=== PATIENT | male | born 1930 | race Caucasian/White ===

== ENCOUNTER 2021-12-30 06:16 | Day surgery (SDC) | payer MEDICARE, BC ==
[~2021-12-30] VITALS: Ht 167.6 cm; Wt 68.6 kg
[~2021-12-30 06:16] MED LIST: ENALAPRIL MALEA20 MG PO; HYDROCHLOROTHIA25 MG PO; LIPITOR10 MG; TENORMIN50 MG PO; TRAMADOL HCL50 MG PO
[2021-12-30] MEDS ORDERED: LO-DOSE ASPIRIN81 MG PO (06:43)
--- NOTE | 2021-12-30 08:59 | NUR ---
12/30/21 0859 Sheets,Arlene 0846 PT ARRIVED TO PACU ASLEEP ON 6L VIA MASK, VSS. 0851 PT WAKES TO TACTILE STIMULI AND IS REORIENTED TO PACU, O2 MASK REMOVED. PT EASILY FALLS BACK TO SLEEP. 0857 PERIOD OF APNEA NOTED, PT WAKES TO VERBAL STIMULI AND ICE PLACED ON RIGHT WRIST. PT REORIENTED TO PACU. PT REPORTS HAND IS NUMB AND NO PAIN.
--- NOTE | 2021-12-30 10:20 | NUR ---
PT ALERT, ORIENTED AND SUPPORTED BY FAMILY. PT HAD OTHER HAD DONE LAST YEAR, SEEMS READY FOR THIS PROCEDURE. ALL QUESTIONS ASKED ANSWERED. HAD PRAYER WITH ALL. WILL FOLLOW
--- NOTE | 2022-01-02 08:45 | OR ---
[facility] [address], [place] [address] Signed DATE OF OPERATION: 12/30/2021 SURGEON: Umberto Juarez MD PREOPERATIVE DIAGNOSIS: Carpal tunnel syndrome, right. POSTOPERATIVE: Carpal tunnel syndrome, right. PROCEDURE PERFORMED: Carpal tunnel release, right. SUPERVISOR PAYROLL: None. ANESTHESIA: [place] block. TOURNIQUET TIME: 14 minutes. BRIEF HISTORY: Jacquelyn is an 89-year-old gentleman with pain and numbness in both hands. He had undergone successful left release and wished to proceed with the right. Risks, benefits, and alternatives were discussed. They elected to proceed. Once consent was obtained, he was taken to the operating room. After adequate anesthesia, his arm was placed in the hand table. The arm was prepped and draped in a standard sterile fashion. A 1.5 cm incision was made in the distal wrist crease, carried through skin and subcutaneous tissue. The palmaris longus was identified, retracted, and protected. Under loupe magnification, the transverse carpal ligament was identified and again dissected free of overlying tissue. He was then released approximately a cm and distally to the distal extent. This was done under direct visualization. The wound was copiously irrigated with normal saline, closed with 3-0 nylon and infiltrated with 7 mL of 0.25% plain Marcaine. The wound was dressed with bacitracin, Adaptic, 4 x 8s, and gauze. He tolerated the procedure well. All sponge, needle, and instrument counts were correct. Electronically Signed By: UMBERTO JUAREZ MD 01/02/22 0845 PATIENT NAME: JACQUELYN ZUÑIGA OPERATIVE REPORT DATE OF : [birth year] REPORT #: [id number] PHYSICIAN: UMBERTO JUAREZ MD PCP: MILLIE CHRISTIANSON MD REPORT IS CONFIDENTIAL AND NOT TO BE RELEASED WITHOUT AUTHORIZATION [address] [address] Signed Umberto Juarez MD BA/JANICE /[id number] Copies: ~ Electronically Signed By: UMBERTO JUAREZ MD 01/02/22 0845 PATIENT NAME: JACQUELYN ZUÑIGA OPERATIVE REPORT DATE OF : [birth year] REPORT #: [id number] PHYSICIAN: UMBERTO JUAREZ MD PCP: MILLIE CHRISTIANSON MD REPORT IS CONFIDENTIAL AND NOT TO BE RELEASED WITHOUT AUTHORIZATION
== END 2021-12-30 09:32 | disposition home or self-care (01) ==
LOC: DS 06:16
PROVIDERS: ATTEND Specialist
PROC: 01N50ZZ Release Median Nerve, Open Approach (ICD-10-PCS; principal; 2021-12-30 09:15)
DX: G56.01 Carpal tunnel syndrome, right upper limb (principal); Z79.82 Long term (current) use of aspirin; Z88.8 Allergy status to other drugs, medicaments and biological substances; Z96.653 Presence of artificial knee joint, bilateral; Z87.891 Personal history of nicotine dependence
CPT/HCPCS: 01810; J0690; J2704; J7121